=== PATIENT | female | born 1940 | race Caucasian/White ===

== ENCOUNTER 2024-08-27 05:41 | Emergency (ER) | payer MEDICARE, SELFPAY ==
[2024-08-27 05:43] VITALS: BP 142/80
[2024-08-27 05:50] VITALS: BMI 25.3
[2024-08-27 06:00] VITALS: BP 140/77
[2024-08-27 06:03] LABS: % Basophils 0.7 % (0-2); % Immature Granulocytes 0.5 % (0-0.5); % Lymphocytes 17.1 % (20.5-51.1); % Monocytes 7.7 % (1.7-9.3); Absolute Basophils 0.1 10^3/uL (0-0.2); Absolute Eosinophils 0.4 10^3/uL (0-0.7); Absolute Lymphocytes 1.3 10^3/uL (1.2-3.4); Absolute Monocytes 0.6 10^3/uL (0.1-0.6); Absolute Neutrophils 5.1 10^3/uL (1.4-6.5); Hematocrit 38.9 % (37.0-47.0); Hemoglobin 13.4 g/dL (12.0-16.0); Mean Corp Hgb Conc. 34.4 g/dL (33.0-37.0); Mean Corpuscular Hgb 33.1 pg (27.0-31.0); Mean Platelet Volume 8.8 fL (7.4-10.4); Nucleated Red Blood Cells % 0 %; Platelet Count 170 10^3/uL (130-400); Red Blood Cell Count 4.05 10^6/uL (4.20-5.40); Red Cell Dist. Width 12.1 % (11.5-14.5); White Blood Cell Count 7.4 10^3/uL (4.8-10.8)
[2024-08-27 06:25] LABS: ALT (SGPT) 24 U/L (0-35); AST (SGOT) 30 U/L (14-36); Albumin 4.4 g/dl (3.5-5.0); Alkaline Phosphatase 132 U/L (38-126); Blood Urea Nitrogen 11 mg/dl (7-17); Calcium 9.2 mg/dl (8.4-10.2); Carbon Dioxide 24 mmol/L (22-30); Chloride 100 mmol/L (98-107); Estimated Creatinine Clearance 63 ml/min; Glucose 123 mg/dl (70-99); Potassium 4.3 mmol/L (3.5-5.1); Sodium 133 mmol/L (135-145); Total Bilirubin 0.6 mg/dl (0.2-1.3); Total Protein 7.2 g/dl (6.3-8.2); eGFR > 60.00
[2024-08-27 07:02] VITALS: BP 136/78
--- NOTE | 2024-08-27 07:20 | ED.GENMED ---
History of Present Illness
General
Chief Complaint: Change in Mental Status
Source: patient and family
Exam Limitations: dementia
Time Seen by Provider: 08/27/24 07:04
History of Present Illness
History of Present Illness:
84-year-old female with a history of Alzheimer's, remote breast cancer, asthma presents for having slightly increased agitation this morning and yesterday morning. Patient has had URI symptoms over the last 3 to 4 days with a cough but no fever.
Her cough is mostly dry. She has not used an inhaler for it. Patient was at her doctor's where they tested her for flu and COVID which were negative. I did not feel like she had pneumonia.
Patient usually is a little bit more confused in the morning and as the day progressed she gets better. She has care from a home health aide for several hours in the morning and several hours in the afternoon, they give her specific meals to eat.
Patient apparently has been eating okay. Daughter at this morning does not really feel like she seems much different than her baseline.
She has not had a known fever, history of recurrent UTIs, vomiting, shortness of breath. Patient offers no complaints other than just not feeling well.
Past History
Past History
ED Past Medical History: Cancer (Breast)
ED Past Surgical History: Other
Social History
Tobacco: Non-smoker
Alcohol: None
Drug: None
Living: alone
Family History
Family History: Other
Review of Systems
Review of Systems
Allergies reviewed?: Yes
All Other Systems: Not applicable
Phy Exam
Physical Exam
Physical Exam:
GENERAL: Alert , in no apparent distress, awake and alert
EYE: pupils equal and reactive
NECK: Supple
ENT: o/p clr, mmm. No pharyngeal erythema
CARDIAC: Regular rate and rhythm .
LUNGS: Clear breath sounds bilaterally, no acute respiratory distress, no wheezes but patient has a wheezy sounding cough when she takes a deep breath
ABDOMEN: Soft, without focal tenderness, no r/g, no cvat, normal bowel sounds
NEUROLOGICAL: Alert and oriented x 2, no focal neuro deficits
SKIN: Warm and dry, skin intact.
MUSCULOSKELETAL: No edema, well perfused. neg jaz's sign
PSYCH: Normal and appropriate interaction.
Course
Orders/Labs/Results
Orders:
Orders
08/27/24 05:55
CMP [Comprehensive Metabolic Panel] Urgent
Complete Blood Count/With Diff Urgent
08/27/24 07:18
Straight cath- Treatment ONCE
0.9% Sodium Chloride 500 ml [Nss] 500 ml IV BOLUS
CR Chest - 2 Views Urgent
Comment:
Reason For Exam: weakness, doesn't feel well, cough
08/27/24 07:38
COVID-19 Antigen Urgent
Source: Nasal Swab
Urinalysis Reflex To Culture Urgent
Date Specimen was Collected: 08/27/24
Time Specimen was Collected: 07:37
Urine Microscopic Reflex Cult Urgent
Influenza A+B Rapid Molecular Urgent
MODESTA Source: Nasal Swab
Specimen Description:
Respiratory Syncytial Virus Urgent
MODESTA Source: Nasal Swab
Specimen Description:
Date Specimen was Collected: 08/27/24
Time Specimen was Collected: 07:37
Urine Culture Urgent
MODESTA Source: U
Specimen Description:
Date Specimen was Collected: 08/27/24
Time Specimen was Collected: 07:37
08/27/24 09:08
Albuterol Nebs [Ventolin Nebules] 2.5 mg INH R NOW STA
08/27/24 09:59
Dexamethasone Sod Phosphate [Decadron] 6 mg IV NOW STA
08/27/24 10:22
Add On - Microbiology Urgent
Tests Added?: urine culture
08/27/24 10:47
Dexamethasone [Decadron] 8 mg PO NOW STA
Abnormal Lab Results
08/27/24 08/27/24
05:55 07:38
RBC 4.05 L 10^6/uL
(4.20-5.40)
MCH 33.1 H pg
(27.0-31.0)
Lymphocytes % 17.1 L %
(20.5-51.1)
Sodium 133 L mmol/L
(135-145)
Glucose 123 H mg/dl
(70-99)
Alkaline Phosphatase 132 H U/L
(38-126)
Urine Bacteria (Reflex) Few A
(Negative)
Urine Albumin (Reflex) 1+ A
(Neg - Trace)
08/27/24 05:55
08/27/24 05:55
Vital Signs
Initial and Last Documented VS:
Initial Vital Signs
Temp Pulse Resp BP Pulse Ox
36.9 C 79 20 142/80 95
08/27/24 05:43 08/27/24 05:43 08/27/24 05:43 08/27/24 05:43 08/27/24 05:43
Last Documented Vital Signs
Temp Pulse Resp BP Pulse Ox
36.9 C 85 21 125/82 96
08/27/24 05:43 08/27/24 09:45 08/27/24 09:45 08/27/24 09:38 08/27/24 09:45
MDM/Problems Addressed
Differential Diagnosis Includes:
bronchitis, pneumonia, uti, uri
MDM/Problems Addressed:
84 y/o F with h/o asthma
3-4 days URI
cough
woke up this morning a little more confused per son but neena says that it typicalfor her in the morning with her alzheimers
she has not had fever, tachypnea, vomiting
no h/o recurrent UTIS
here she is oriented and at her baseline
vitals are stable
afebrile
lungs sound clear but she has wheezy cough but otherwise is not wheezing
flu/covid/rsv neg
labs are unremarkable
cxr indep reviewed by me and i spoke with radiologist about it; no PNA
will give neb treatmetn for cough
continue inhaler
[facility], per family
d/ chome
*Critical Care Note
Total Time (30-74mins, 75-104mins- exclusive of procedures): Not Applicable
ED Attending Note
-
Portions of this chart may have been created with voice recognition software.� Occasional wrong word or��sound alike� substitutions may have occurred due to the inherent limitations of voice recognition software.
Discharge Plan
Departure
Patient Disposition: Home (Routine Discharge)
Date of Disposition: 08/27/24
Time of Disposition: 10:27
Patient with high blood pressure during this ER visit?: No
Condition: Fair
Covid-19: Negative COVID-19
Discharge Problem:
Acute upper respiratory infection
Instructions: Upper respiratory infection in adults - Discharge instructions, Asthma in adults - Discharge instructions
Prescriptions:
No Action
sertraline 100 MG tablet
75 mg PO Daily
exemestane 25 MG tablet
25 mg PO Daily
montelukast 10 MG tablet
10 mg PO Daily
pravastatin 20 MG tablet
20 mg PO Daily
gabapentin 100 MG capsule
100 mg PO Daily
ferrous sulfate [FeroSul] 325 MG tablet
325 mg PO TID Qty: 30 0RF
Referrals:
Rojas Noyola MD [Family Provider] - Follow up in 2-3 days
Activity Restrictions/Additional Instructions:
Ginny seems to have no additional issues other than the upper respiratory infection that she has. Her chest x-ray showed no pneumonia. Her flu and COVID were negative. This is likely viral. We gave her a dose of steroids to help with the
cough. She also got a breathing treatment. You can continue using the inhaler albuterol 2 puffs every 4-6 hours as needed for cough. (put 1 puff int he spacer and have her take a breath and hold it for 6-10 seconds, then repeat for the 2nd puff)
[place] diet, keep her hydrated. Watch for worsening symptoms. Return for shortness of breath, worsening confusion, or any concerns
Interventions
Interventions:
*Risk Screen - Suicide Last Done: 08/27/24 05:43
*General Assessment Last Done: 08/27/24 05:43
*Neglect/Abuse Screening Last Done: 08/27/24 05:43
ED- Fall Risk Assessment Last Done: 08/27/24 06:18
*ED COVID-19 Vaccine History Last Done: 08/27/24 05:43
ED- Neurological Assessment Last Done: 08/27/24 05:54
ED Swallowing Screen Last Done: 08/27/24 06:18
Discharge Date and Time
Print Language: INDONESIAN
[2024-08-27 08:07] VITALS: BP 137/81
[2024-08-27 08:08] LABS: COVID-19 Antigen Negative (Negative)
[2024-08-27 08:31] LABS: Urine Albumin 1+ (Neg - Trace); Urine Bilirubin Negative (Negative); Urine Character Clear (Clear); Urine Color Yellow; Urine Glucose Negative (Negative); Urine Ketone Negative (Negative); Urine Leukocyte Negative (Negative); Urine Nitrite Negative (Negative); Urine Occult Blood Negative (Negative); Urine Urobilinogen Negative (Neg - 1+)
[2024-08-27 08:49] LABS: Urine Mucus Few
[2024-08-27 08:50] LABS: Urine Amorphous Seen; Urine Bacteria Few (Negative); Urine Red Blood Cell 0-2 /HPF (0-2); Urine Urothelial Cell 0-2 /LPF (FEW); Urine White Cell 0-2 /HPF (0-5)
[2024-08-27 09:38] VITALS: BP 125/82
[2024-08-27] MEDS: VENTOLIN NEBULES 2.5 MG INH (09:38)
[2024-08-27] MEDS: NSS 500 IV (09:40)
[2024-08-27 10:00] VITALS: BP 136/82
[2024-08-27] MEDS: DECADRON 8 MG PO (10:50)
== END 2024-08-27 11:00 | disposition home or self-care (01) ==
LOC: EMR 05:41
PROVIDERS: Physician Assistant; Student in an Organized Health Care Education/Training Program; EMERGENCY PHYSICIAN Emergency Medicine; FAMILY PHYSICIAN Internal Medicine Geriatric Medicine
DX: J06.9 Acute upper respiratory infection, unspecified (principal); G30.9 Alzheimer's disease, unspecified; F02.811 Dementia in other diseases classified elsewhere, unspecified severity, with agitation; J45.909 Unspecified asthma, uncomplicated; Z85.3 Personal history of malignant neoplasm of breast; Z11.52 Encounter for screening for COVID-19
CPT/HCPCS: 99284; 94640; 71046; 80053; 81003; 81015; 85025; 87086; 87502; 87807; 87811

== ENCOUNTER → 2025-01-08 12:42 | Outpatient (REF) | payer MEDICARE, SELFPAY | LOC: HWRAD 12:42 | PROVIDERS: ATTENDING PHYSICIAN Internal Medicine Geriatric Medicine | DX: J45.20 Mild intermittent asthma, uncomplicated (principal) | CPT/HCPCS: 71046 ==

== ENCOUNTER → 2025-02-03 10:50 | Outpatient (REF) | payer MEDICARE, SELFPAY ==
[2025-02-03 12:22] LABS: Hematocrit 36.1 % (37.0-47.0); Hemoglobin 12.3 g/dL (12.0-16.0); Mean Corp Hgb Conc. 34.1 g/dL (33.0-37.0); Mean Corpuscular Volume 98.1 fL (81.0-99.0); Nucleated Red Blood Cells % 0 %; Platelet Count 241 10^3/uL (130-400); Red Cell Dist. Width 11.8 % (11.5-14.5)
[2025-02-03 12:38] LABS: ALT (SGPT) 13 U/L (0-35); AST (SGOT) 23 U/L (14-36); Albumin 4.0 g/dl (3.5-5.0); Alkaline Phosphatase 90 U/L (38-126); Blood Urea Nitrogen 16 mg/dl (7-17); Calcium 8.8 mg/dl (8.4-10.2); Carbon Dioxide 27 mmol/L (22-30); Chloride 101 mmol/L (98-107); Glucose 98 mg/dl (70-99); Potassium 3.8 mmol/L (3.5-5.1); Sodium 134 mmol/L (135-145); Total Protein 6.6 g/dl (6.3-8.2); eGFR > 60.00
== END ==
LOC: OLABPATH 10:50
PROVIDERS: ATTENDING PHYSICIAN Internal Medicine
DX: K21.00 Gastro-esophageal reflux disease with esophagitis, without bleeding (principal); F02.A4 Dementia in other diseases classified elsewhere, mild, with anxiety; I10 Essential (primary) hypertension; C50.919 Malignant neoplasm of unspecified site of unspecified female breast
CPT/HCPCS: 36415; 80053; 85025

== ENCOUNTER → 2025-02-19 09:34 | Outpatient (REF) | payer MEDICARE, SELFPAY ==
[2025-02-19 10:46] LABS: Hematocrit 37.2 % (37.0-47.0); Hemoglobin 12.7 g/dL (12.0-16.0); Mean Corp Hgb Conc. 34.1 g/dL (33.0-37.0); Mean Corpuscular Volume 96.4 fL (81.0-99.0); Nucleated Red Blood Cells % 0 %; Platelet Count 237 10^3/uL (130-400); Red Cell Dist. Width 11.7 % (11.5-14.5)
[2025-02-19 10:54] LABS: ALT (SGPT) 12 U/L (0-35); AST (SGOT) 21 U/L (14-36); Albumin 4.2 g/dl (3.5-5.0); Alkaline Phosphatase 108 U/L (38-126); Blood Urea Nitrogen 21 mg/dl (7-17); Calcium 8.9 mg/dl (8.4-10.2); Carbon Dioxide 25 mmol/L (22-30); Chloride 101 mmol/L (98-107); Glucose 95 mg/dl (70-99); Potassium 4.1 mmol/L (3.5-5.1); Sodium 135 mmol/L (135-145); Total Protein 6.8 g/dl (6.3-8.2); eGFR > 60.00
== END ==
LOC: OLABPATH 09:34
PROVIDERS: ATTENDING PHYSICIAN Internal Medicine
DX: K21.00 Gastro-esophageal reflux disease with esophagitis, without bleeding (principal); F02.A4 Dementia in other diseases classified elsewhere, mild, with anxiety; I10 Essential (primary) hypertension; C50.919 Malignant neoplasm of unspecified site of unspecified female breast
CPT/HCPCS: 36415; 80053; 85025